=== PATIENT | female | born 1940 | race Caucasian/White ===

== ENCOUNTER → 2021-03-21 | Day surgery (SDC) | payer MEDICARE ==
[~2021-03-21] VITALS: Ht 154.9 cm; Wt 68.0 kg
[~2021-03-21] MED LIST: ALLER-CHLOR4 MG PO; AMARYL 2MG TABLE2 MG PO; ATORVASTATIN CA10 MG PO; AZITHROMYCIN250 MG PO; CALCIUM CARBON600 MG PO; CERTAGEN1 EACH PO; CYMBALTA60 MG PO; FLEXERIL10 MG PO; FOSINOPRIL SODI10 MG PO; GLUCOPHAGE XR500 MG PO; JANUVIA100 MG PO; LACTINEX1 EACH PO; MELOXICAM15 MG PO; PRILOSEC20 MG PO; SYNTHROID50 MCG PO; TESSALON PERLE100 M1 PO; ULTRAM50 MG PO
[2021-03-21 08:57] LABS: HCT 37.1 % (37.0-47.0); HGB 11.4 g/dl (12.5-16.0); MCH 23.8 pg (25.0-31.0); MCHC 30.7 g/dL (32.0-36.0); MCV 77.3 fL (78.0-100.0); MPV 12.4 fL (6.0-9.5); RBC 4.8 M/uL (4.20-5.40); RDW 16.2 % (11.5-14.0); WBC 9.4 K/uL (4.0-10.5)
[2021-03-21 09:16] LABS: ALBUMIN 3.8 g/dL (3.4-5.0); BILIRUBIN - TOTAL 0.4 mg/dL (0.2-1.0); BUN/CREAT RATIO (CALC) 17.3 RATIO; CREATININE 0.75 mg/dL (0.51-0.95); GLOBULIN (CALCULATION) 3.8 g/dL; POTASSIUM 4.4 mmol/L (3.5-5.1); TOTAL PROTEIN 7.6 g/dL (6.4-8.2)
== END | disposition home or self-care (01) ==
LOC: FAS 03-14 08:00
PROVIDERS: Surgery
DX: K58.1 Irritable bowel syndrome with constipation (principal); I10 Essential (primary) hypertension; E11.9 Type 2 diabetes mellitus without complications; E78.5 Hyperlipidemia, unspecified; Z79.84 Long term (current) use of oral hypoglycemic drugs
CPT/HCPCS: 36415; 80053; J1610; J2704; J7120